=== PATIENT | female | born 1945 ===

== ENCOUNTER 2024-04-27 09:17 | Emergency (ER) | payer MEDICARE, BC ==
[2024-04-27] MEDS: Diltiazem 25 MG/5 ML SDV IVPUSH ONE (10:22)
[2024-04-27] MEDS: Sodium Chloride 0.9% 1,000 ML IV ONE (10:34)
[2024-04-27 10:39] LABS: BASOPHILS ABSOLUTE AUTO 0.01 K/uL (0.02-0.10); BASOPHILS PERCENT AUTO 0.2 % (0.0-0.5); EOSINOPHILS ABSOLUTE AUTO 0.05 K/uL (0.04-0.40); EOSINOPHILS PERCENT AUTO 0.9 % (1.0-5.0); HEMATOCRIT 39.7 % (37.0-47.0); LYMPHOCYTES ABSOLUTE AUTO 1.07 K/uL (1.50-4.00); LYMPHOCYTES PERCENT AUTO 18.5 % (20.0-40.0); MEAN CORPUSCULAR HGB CONC 35.3 g/dL (31.0-35.0); MEAN CORPUSCULAR VOLUME 88 fL (76-96); MEAN PLATELET VOLUME 9.7 fL (6.0-10.0); MONOCYTES ABSOLUTE AUTO 0.32 K/uL (0.20-0.80); MONOCYTES PERCENT AUTO 5.5 % (3.0-10.0); NEUTROPHILS ABSOLUTE AUTO 4.33 K/uL (2.00-7.50); NEUTROPHILS PERCENT AUTO 74.9 % (45.0-70.0); PLATELET COUNT,PLT 216 K/uL (150-500); RED BLOOD CELL COUNT 4.51 M/uL (3.80-5.80); RED CELL DISTRIBUTION WIDTH 12.3 % (11.0-16.0); WHITE BLOOD CELL COUNT,WBC 5.8 K/uL (4.0-11.0)
[2024-04-27 10:59] LABS: PTT,PARTIAL THROMBOPLSTIN TIME 20.3 SECONDS (24.4-33.2)
[2024-04-27 11:01] LABS: A/G RATIO 0.9 (0.8-2.0); ALBUMIN 3.5 g/dL (3.4-5.0); ANION GAP 13.3 mmol/L (5.0-15.0); BILIRUBIN TOTAL 1.6 mg/dL (0.0-1.0); BUN/CREATININE RATIO 27.4 (6-25); CALCIUM 9.1 mg/dL (8.5-10.1); CARBON DIOXIDE,CO2 26.3 mmol/L (21.0-32.0); CREATININE 0.84 mg/dL (0.55-1.02); EST CRCL DRUG DOSING (CG) 40.31 mL/min; POTASSIUM,K 3.6 mmol/L (3.5-5.1); PROTEIN TOTAL,TP 7.4 g/dL (6.4-8.2)
[2024-04-27 11:07] LABS: PROTHROMBIN TIME 10.5 sec (9.0-11.5)
[2024-04-27 11:12] LABS: MAGNESIUM 1.9 mg/dL (1.8-2.4)
[2024-04-27 11:21] LABS: INFLUENZA A NAA NEGATIVE (NEGATIVE); INFLUENZA B NAA NEGATIVE (NEGATIVE); RESPIRATORY SYNCYTIAL VIR NAA NEGATIVE (NEGATIVE)
[2024-04-27 11:25] LABS: TROPONIN I HIGH SENSITIVITY 4.4 pg/ml (<=60.4)
[2024-04-27 11:29] LABS: APPEARANCE,URINE CLEAR (CLEAR); COLOR,URINE YELLOW; PH,URINE 5.5 (5.0-8.0)
[2024-04-27 11:30] LABS: BILIRUBIN,URINE NEGATIVE (NEGATIVE); GLUCOSE,URINE NEGATIVE (NEGATIVE); KETONES,URINE TRACE mg/dL (NEGATIVE); NITRITE,URINE NEGATIVE (NEGATIVE); OCCULT BLOOD,URINE NEGATIVE (NEGATIVE); PROTEIN,URINE 30 mg/dL (NEGATIVE); UROBILINOGEN,URINE 0.2 E.U./dL (0.2-1.0)
[2024-04-27 11:31] LABS: LEUKOCYTE ESTERASE,URINE NEGATIVE (NEGATIVE); RBC,URINE NOT SEEN /HPF; WBC,URINE NOT SEEN /HPF
[2024-04-27 11:31] LABS: CORONAVIRUS COVID-19 NAA NEGATIVE (NEGATIVE)
[2024-04-27] MEDS: Apixaban 2.5 MG Tab PO ONE (12:22)
[2024-04-27] MEDS: Diltiazem 120 MG Cap.CD PO ONE (12:27)
[2024-04-27] MEDS: Diltiazem 240 MG Cap.ER PO ONE (12:31)
[2024-04-27] MEDS: Diltiazem 120 MG Cap.CD ONE (12:36)
[2024-04-27 14:04] VITALS: BP 176/91; PULSE 68
== END 2024-04-27 13:09 | disposition home or self-care (01) ==
LOC: LB.ED 09:17
DX: I48.91 Unspecified atrial fibrillation (principal); Z88.6 Allergy status to analgesic agent; Z79.899 Other long term (current) drug therapy
CPT/HCPCS: 0241U; 36415; 71045; 80053; 81001; 83605; 83735; 83880; 84145; 84484; 85025; 85379; 85610; 85730; 93005; 96361; 96374; 99285; A9270; J3490; J7030

== ENCOUNTER 2024-04-28 18:45 | Observation (INO) | payer MEDICARE, BC ==
[2024-04-28] MEDS: Non-Formulary Medication 1 Each (Apixaban [Eliquis] 2.5 MG Tablet) PO SCH (21:21)
[2024-04-28] MEDS: Non-Formulary Medication 1 Each (Carbidopa/Levodopa [Carbidopa-Levo 25-100 Mg Odt] 1 EACH PO SCH (21:22)
[2024-04-28] MEDS ORDERED: Sodium Chloride 0.9% 10 ML Syringe FLUSH PRN (22:08)
[2024-04-29] MEDS: Carbidopa/Levodopa 25-100 MG Tab **OWN MED PO SCH (08:09)
[2024-04-29] MEDS: APIXABAN 2.5 MG PO SCH (08:09)
[2024-04-29] MEDS: DILTIAZEM 120 MG PO SCH (08:10)
[2024-04-29] MEDS: Aspirin 81 MG Tab.Chew PO SCH (08:10)
[2024-04-29 09:58] VITALS: BP 132/72; PULSE 73
== END 2024-04-29 10:00 | disposition home or self-care (01) ==
LOC: LB.ED 18:45 → LB.MS 19:24 → UNDOADMOB 19:25 → LB.MS 19:25
PROVIDERS: ADMIT Physician Assistant; ATTEND Physician Assistant
DX: T44.1X1A Poisoning by other parasympathomimetics [cholinergics], accidental (unintentional), initial encounter (principal); G20.A1 Parkinson's disease without dyskinesia, without mention of fluctuations; Z79.899 Other long term (current) drug therapy
CPT/HCPCS: 99222; 99238; 99285; A9270-GY; G0378

== ENCOUNTER 2024-04-29 15:37 | Inpatient (IN) | payer MEDICARE, BC ==
[2024-04-29] MEDS ORDERED: Sodium Chloride 0.9% 10 ML Syringe FLUSH PRN (15:55)
[2024-04-29 16:24] LABS: BASOPHILS ABSOLUTE AUTO 0.01 K/uL (0.02-0.10); BASOPHILS PERCENT AUTO 0.1 % (0.0-0.5); EOSINOPHILS ABSOLUTE AUTO 0.02 K/uL (0.04-0.40); EOSINOPHILS PERCENT AUTO 0.3 % (1.0-5.0); HEMATOCRIT 38.4 % (37.0-47.0); HEMOGLOBIN 13.7 g/dL (11.5-16.5); LYMPHOCYTES ABSOLUTE AUTO 1.76 K/uL (1.50-4.00); LYMPHOCYTES PERCENT AUTO 24.1 % (20.0-40.0); MEAN CORPUSCULAR HEMOGLOBIN 31.1 pg (27.0-32.0); MEAN CORPUSCULAR HGB CONC 35.7 g/dL (31.0-35.0); MEAN CORPUSCULAR VOLUME 87 fL (76-96); MEAN PLATELET VOLUME 9.8 fL (6.0-10.0); MONOCYTES ABSOLUTE AUTO 0.79 K/uL (0.20-0.80); MONOCYTES PERCENT AUTO 10.8 % (3.0-10.0); NEUTROPHILS ABSOLUTE AUTO 4.73 K/uL (2.00-7.50); NEUTROPHILS PERCENT AUTO 64.7 % (45.0-70.0); PLATELET COUNT,PLT 214 K/uL (150-500); RED CELL DISTRIBUTION WIDTH 12.2 % (11.0-16.0); WHITE BLOOD CELL COUNT,WBC 7.3 K/uL (4.0-11.0)
[2024-04-29 16:47] LABS: PTT,PARTIAL THROMBOPLSTIN TIME 20.2 SECONDS (24.4-33.2)
[2024-04-29 17:01] LABS: A/G RATIO 0.9 (0.8-2.0); ALBUMIN 3.2 g/dL (3.4-5.0); ANION GAP 14.2 mmol/L (5.0-15.0); BILIRUBIN TOTAL 1.5 mg/dL (0.0-1.0); BUN/CREATININE RATIO 21.2 (6-25); CALCIUM 8.7 mg/dL (8.5-10.1); CARBON DIOXIDE,CO2 21.9 mmol/L (21.0-32.0); CREATININE 1.04 mg/dL (0.55-1.02); EST CRCL DRUG DOSING (CG) 33.34 mL/min; POTASSIUM,K 3.1 mmol/L (3.5-5.1); PROTEIN TOTAL,TP 6.7 g/dL (6.4-8.2); TSH ULTRASENSITIVE 1.685 uIU/mL (0.358-3.740)
[2024-04-29 17:07] LABS: TROPONIN I HIGH SENSITIVITY 7.6 pg/ml (<=60.4)
[2024-04-29 17:13] LABS: PROTHROMBIN TIME 10.6 sec (9.0-11.5)
[2024-04-29] MEDS ORDERED: Ondansetron 4 MG/2 ML SDV IV PRN (17:34)
[2024-04-29] MEDS ORDERED: Non-Formulary Medication 1 Each (Carbidopa/Levodopa [Carbidopa-Levo 25-100 Mg Odt] 1 EACH PO SCH (18:00)
[2024-04-29 19:45] LABS: APPEARANCE,URINE SLIGHTLY CLOUDY (CLEAR); COLOR,URINE YELLOW; PH,URINE 5.5 (5.0-8.0)
[2024-04-29] MEDS: NS + KCl 20mEq/L 1,000 ML IV SCH (19:45)
[2024-04-29 19:46] LABS: BILIRUBIN,URINE SMALL (NEGATIVE); GLUCOSE,URINE NEGATIVE (NEGATIVE); KETONES,URINE 15 mg/dL (NEGATIVE); OCCULT BLOOD,URINE NEGATIVE (NEGATIVE); PROTEIN,URINE 30 mg/dL (NEGATIVE); UROBILINOGEN,URINE 0.2 E.U./dL (0.2-1.0)
[2024-04-29] MEDS: Fish Oil/Omega-3 Fatty Acids 1 Gm Cap PO SCH (19:46)
[2024-04-29] MEDS: Apixaban 2.5 MG Tab PO SCH (19:46)
[2024-04-29] MEDS: Carbidopa/Levodopa 25-100 MG Tab PO SCH (19:46)
[2024-04-29 19:47] LABS: LEUKOCYTE ESTERASE,URINE NEGATIVE (NEGATIVE); NITRITE,URINE NEGATIVE (NEGATIVE); RBC,URINE 0-5 /HPF; SQUAMOUS EPITHELIAL CELLS,UR OCCASIONAL /HPF; WBC,URINE 0-5 /HPF
[2024-04-30] MEDS: Acetaminophen 325 MG Tab PO PRN (02:36)
[2024-04-30] MEDS: Diltiazem 120 MG Cap.CD PO SCH (07:32)
[2024-04-30] MEDS: Donepezil 5 MG Tab PO SCH (07:32)
[2024-04-30 08:25] LABS: BASOPHILS ABSOLUTE AUTO 0.02 K/uL (0.02-0.10); BASOPHILS PERCENT AUTO 0.3 % (0.0-0.5); EOSINOPHILS ABSOLUTE AUTO 0.03 K/uL (0.04-0.40); EOSINOPHILS PERCENT AUTO 0.4 % (1.0-5.0); HEMATOCRIT 38.7 % (37.0-47.0); HEMOGLOBIN 13.8 g/dL (11.5-16.5); LYMPHOCYTES ABSOLUTE AUTO 1.62 K/uL (1.50-4.00); LYMPHOCYTES PERCENT AUTO 23.9 % (20.0-40.0); MEAN CORPUSCULAR HEMOGLOBIN 30.8 pg (27.0-32.0); MEAN CORPUSCULAR HGB CONC 35.7 g/dL (31.0-35.0); MEAN CORPUSCULAR VOLUME 86 fL (76-96); MEAN PLATELET VOLUME 9.8 fL (6.0-10.0); MONOCYTES PERCENT AUTO 7.4 % (3.0-10.0); PLATELET COUNT,PLT 228 K/uL (150-500); RED BLOOD CELL COUNT 4.48 M/uL (3.80-5.80); WHITE BLOOD CELL COUNT,WBC 6.8 K/uL (4.0-11.0)
[2024-04-30 08:54] LABS: A/G RATIO 0.9 (0.8-2.0); ALBUMIN 3.2 g/dL (3.4-5.0); ANION GAP 11.6 mmol/L (5.0-15.0); BILIRUBIN TOTAL 1.9 mg/dL (0.0-1.0); BUN/CREATININE RATIO 17.8 (6-25); CALCIUM 8.7 mg/dL (8.5-10.1); CREATININE 0.9 mg/dL (0.55-1.02); EST CRCL DRUG DOSING (CG) 38.53 mL/min; POTASSIUM,K 3.6 mmol/L (3.5-5.1); PROTEIN TOTAL,TP 6.7 g/dL (6.4-8.2)
[2024-04-30] MEDS: Aspirin 81 MG Tab.EC PO SCH (09:30)
[2024-04-30 12:15] LABS: INFLUENZA A NAA NEGATIVE (NEGATIVE); INFLUENZA B NAA NEGATIVE (NEGATIVE)
[2024-04-30 12:18] LABS: CORONAVIRUS COVID-19 NAA NEGATIVE (NEGATIVE)
[2024-05-01 08:07] VITALS: BP 121/82
[2024-05-01 08:13] VITALS: PULSE 66
[2024-05-01 09:00] LABS: BASOPHILS ABSOLUTE AUTO 0.02 K/uL (0.02-0.10); BASOPHILS PERCENT AUTO 0.3 % (0.0-0.5); EOSINOPHILS ABSOLUTE AUTO 0.05 K/uL (0.04-0.40); EOSINOPHILS PERCENT AUTO 0.7 % (1.0-5.0); HEMATOCRIT 37.3 % (37.0-47.0); HEMOGLOBIN 13.4 g/dL (11.5-16.5); LYMPHOCYTES ABSOLUTE AUTO 1.35 K/uL (1.50-4.00); LYMPHOCYTES PERCENT AUTO 18.4 % (20.0-40.0); MEAN CORPUSCULAR HEMOGLOBIN 31.2 pg (27.0-32.0); MEAN CORPUSCULAR HGB CONC 35.9 g/dL (31.0-35.0); MEAN CORPUSCULAR VOLUME 87 fL (76-96); MEAN PLATELET VOLUME 9.8 fL (6.0-10.0); MONOCYTES ABSOLUTE AUTO 0.52 K/uL (0.20-0.80); MONOCYTES PERCENT AUTO 7.1 % (3.0-10.0); NEUTROPHILS ABSOLUTE AUTO 5.41 K/uL (2.00-7.50); NEUTROPHILS PERCENT AUTO 73.5 % (45.0-70.0); PLATELET COUNT,PLT 251 K/uL (150-500); WHITE BLOOD CELL COUNT,WBC 7.4 K/uL (4.0-11.0)
[2024-05-01 09:15] LABS: A/G RATIO 0.8 (0.8-2.0); ANION GAP 11.5 mmol/L (5.0-15.0); BILIRUBIN TOTAL 1.6 mg/dL (0.0-1.0); BUN/CREATININE RATIO 14.3 (6-25); CALCIUM 8.7 mg/dL (8.5-10.1); CARBON DIOXIDE,CO2 26.4 mmol/L (21.0-32.0); CREATININE 0.91 mg/dL (0.55-1.02); EST CRCL DRUG DOSING (CG) 38.1 mL/min; POTASSIUM,K 3.9 mmol/L (3.5-5.1); PROTEIN TOTAL,TP 6.6 g/dL (6.4-8.2)
== END 2024-05-01 10:00 | disposition home or self-care (01) | DRG 918 ==
LOC: LB.ED 15:37 → LB.MS 17:31 → UNDOADMIN 17:51
PROVIDERS: ADMIT Physician Assistant; ATTEND Surgery
DX: T44.1X1A Poisoning by other parasympathomimetics [cholinergics], accidental (unintentional), initial encounter (principal); T42.8X6A Underdosing of antiparkinsonism drugs and other central muscle-tone depressants, initial encounter; R53.1 Weakness; I48.91 Unspecified atrial fibrillation; G20.A1 Parkinson's disease without dyskinesia, without mention of fluctuations; E86.0 Dehydration; Z79.82 Long term (current) use of aspirin; Z79.01 Long term (current) use of anticoagulants; Z79.899 Other long term (current) drug therapy; Z91.138 Patient's unintentional underdosing of medication regimen for other reason
CPT/HCPCS: 0240U; 36415; 71045; 80053; 81001; 83605; 83735; 83880; 84443; 84484; 85025; 85379; 85610; 85730; 93005; 97165; 97530; 97535; 99222; 99231; 99238; 93010; 99285; A9270-GY; J3475; J3480